=== PATIENT | male | born 1995 | race African-American/Black ===

== ENCOUNTER 2019-05-17 23:31 | Emergency (ER) | payer MEDICAID ==
[~2019-05-17] VITALS: Ht 180.3 cm; Wt 88.0 kg
[2019-05-18] MEDS ORDERED: IBUPROFEN 600MG TABLET PO ONE (01:15)
[2019-05-18 02:37] VITALS: BP 122/78
== END 2019-05-18 02:40 | disposition home or self-care (01) ==
LOC: ER 23:31
DX: M25.521 Pain in right elbow (principal); J45.909 Unspecified asthma, uncomplicated
CPT/HCPCS: 73080; 99283